=== PATIENT | female | born 2000 | race Caucasian/White ===

== ENCOUNTER 2020-02-09 21:17 | Emergency (ER) | payer OTHER ==
[2020-02-09] MEDS ORDERED: DEXAMETHASONE SOD PHOSPHATE INJ 4 MG/1 ML VIAL IV ONE (21:50)
[2020-02-09 22:41] LABS: ABSOLUTE LYMPHOCYTES (AUTO) 2.4 10^3/uL (0.5-4.7); ABSOLUTE NEUT (AUTO) 9.6 10^3/uL (1.7-8.2); BASOPHILS % (AUTO) 0.3 % (0-2); EOSINOPHILS % (AUTO) 0.2 % (0-6); HEMATOCRIT 43.6 % (36.0-47.0); HEMOGLOBIN 14.7 g/dL (12.0-15.5); LYMPHOCYTES % (AUTO) 18.1 % (13-45); MEAN CORPUSCULAR HGB CONC 33.8 g/dL (32.0-36.0); MEAN CORPUSCULAR VOLUME 89 fl (80-97); MONOCYTES % (AUTO) 7.9 % (3-13); PLATELET COUNT 379 10^3/uL (150-450); RED CELL DISTRIBUTION WIDTH 12.2 % (11.5-14.0); SEGMENTED NEUTROPHILS % (AUTO) 73.5 % (42-78); TOTAL CELLS COUNTED % (AUTO) 100 %; WHITE BLOOD COUNT 13.1 10^3/uL (4.0-10.5)
[2020-02-09 22:57] LABS: ALKALINE PHOSPHATASE 59 U/L (38-126); ANION GAP 11 (5-19); ASPARTATE AMINO TRANSFERASE 23 U/L (14-36); BILIRUBIN,DIRECT 0.3 mg/dL (0.0-0.4); BILIRUBIN,TOTAL 0.5 mg/dL (0.2-1.3); BLOOD UREA NITROGEN 10 mg/dL (7-20); CALCIUM 9.9 mg/dL (8.4-10.2); CARBON DIOXIDE 28 mmol/L (22-30); CHLORIDE 101 mmol/L (98-107); GLUCOSE 120 mg/dL (75-110); POTASSIUM 4.5 mmol/L (3.6-5.0); TOTAL PROTEIN 8.2 g/dL (6.3-8.2)
--- NOTE | 2020-02-09 23:06 | RADIOLOGY REPORT (SQ) ---
EXAM DESCRIPTION: Contrast-enhanced CT scan of the soft tissues of the neck. CLINICAL HISTORY: 19 years Female Sore throat difficulty swallowing difficulty speak TECHNIQUE: Soft tissue protocol CT of the neck using intravenous contrast.. All CT scans at this facility use dose modulation, iterative reconstruction, and/or weight based dosing when appropriate to reduce radiation dose to as low as reasonably achievable. COMPARISON: None. FINDINGS: Sinuses: Visualized paranasal sinuses and mastoid air cells are clear. Soft tissues: Soft tissues of the face are symmetric. Salivary glands: Edema and enlargement of the right submandibular salivary gland is identified and there is surrounding fluid and edema. This appears to be tracking from the right tonsillar pillar and adenoidal tissue into the region of the right submandibular gland. No definitive stone. Pharynx: The epiglottis is normal. The adenoidal tissue is diffusely enlarged and there is edema present. This extends along the right side of the pharynx into the region of the tonsillar pillars where there is an irregular shaped fluid collection which measures approximately 1.5 x 1.7 x 0.8 cm consistent with a tonsillar abscess. There is surrounding low density fluid extending superiorly towards the skull base as well as inferiorly along the right pharyngeal mucosal space to the mid neck. There is marked narrowing and mass effect on the airway at the level of the palate. No prevertebral soft tissue abnormality. Nodes: Lymphadenopathy is identified predominantly at level two with nodes most pronounced on the right side. These measure up to 2.3 cm in size. The extent into level three anterior to the carotid. There may be subtle low density developing within several of the right-sided nodes suggesting necrosis. Bones: No acute bone findings. Vascular: Within normal limits. Thyroid: Within normal limits. Lung apices are clear. Visualized portion of the intracranial contents are unremarkable. Impression: 1. Extensive inflammatory process involving the adenoids as well as the tonsillar tissues with a irregular shaped right-sided tonsillar pillar abscess which measures 1.5 x 1.7 x 0.8 cm and has extensive surrounding phlegmon. There is airway narrowing at the level of the palate. No evidence of epiglottitis. 2. Cervical lymphadenopathy with subtle changes of early lymph node necrosis in the right neck. 3. No extension into the prevertebral space or mediastinum.
[2020-02-09] MEDS ORDERED: AMPICILLIN SOD/SULBACTAM 3 GM VIAL IV ONE (23:16)
[2020-02-09] MEDS ORDERED: CLINDAMYCIN 900 MG/D5W RTU 900 MG/50 ML RTUPB IV ONE (23:18)
--- NOTE | 2020-02-09 23:22 | ER Document Report ---
ED Medical Screen (RME) - General Chief Complaint: Sore Throat Stated Complaint: THROAT SWELLING//COVID TEST NEGATIVE Time Seen by Provider: 02/09/20 21:40 Mode of Arrival: Ambulatory Information source: Patient Notes: 19-year-old female presented to ED for sore throat and fevers since Thursday. She states Thursday her temperature was up to 101 but has not had a fever today. She states she went to the urgent care they did a swab on her and told her she had to wait 7 days for the results. She states that the sore throat got much worse and she has been very sick and so she came to the emergency room to find out what was going on. Strep test mono test blood work and CT soft tissue neck with IV contrast has been completed. I have given report to Dr. Perez. I have greeted and performed a rapid initial assessment of this patient. A comprehensive ED assessment and evaluation of the patient, analysis of test results and completion of medical decision making process will be conducted by an additional ED providers. - Related Data Home Medications: bcp, flonase, sudafed Physical Exam - Vital signs Vitals: Temp Pulse Resp BP Pulse Ox 97.7 F 119 H 16 147/83 H 97 02/09/20 21:23 02/09/20 21:23 02/09/20 21:23 02/09/20 21:23 02/09/20 21:23 Course - Vital Signs Vital signs: Temp Pulse Resp BP Pulse Ox 97.7 F 119 H 16 147/83 H 97 02/09/20 21:23 02/09/20 21:23 02/09/20 21:23 02/09/20 21:23 02/09/20 21:23 - Laboratory Result Diagrams: 02/09/20 22:10 02/09/20 22:10 Laboratory results interpreted by me: 02/09/20 02/09/20 22:10 22:10 WBC 13.1 H Absolute Neuts (auto) 9.6 H Glucose 120 H
--- NOTE | 2020-02-09 23:33 | ER Document Report ---
Entered by YIFAN CARR SCRIBE 02/09/20 [id number] Acting as scribe for:ISA TO DO ED ENT - General Chief Complaint: Sore Throat Stated Complaint: THROAT SWELLING//COVID TEST NEGATIVE Time Seen by Provider: 02/09/20 21:40 Mode of Arrival: Ambulatory Information source: Patient Notes: This 19 year old female patient with no significant past medical history pres ents to the ED today with complaints of sore throat and fever that started x3 days ago. Patient states that the pain progressively worsened today, so she went to a local urgent care and was tested for COVID with negative results and swabbed for strep with culture results pending. She denies cough or any sick contacts. LMP was x3 days ago. - Related Data Allergies/Adverse Reactions: No Known Allergies Allergy (Unverified 02/09/20 23:37) Home Medications: bcp, flonase, sudafed Past Medical History - General Information source: Patient - Social History Smoking Status: Never Smoker Smoking Education Provided: No Lives with: Spouse/Significant other Family History: Reviewed & Not Pertinent Review of Systems - Review of Systems Constitutional: See HPI, Fever EENT: See HPI, Throat pain Cardiovascular: No symptoms reported Respiratory: See HPI. denies: Cough Gastrointestinal: No symptoms reported Genitourinary: No symptoms reported Female Genitourinary: See HPI, Last menstrual period - 02/06/2020 Musculoskeletal: No symptoms reported Skin: No symptoms reported Hematologic/Lymphatic: No symptoms reported Neurological/Psychological: No symptoms reported -: Yes All other systems reviewed and negative Physical Exam - Vital signs Vitals: Temp Pulse Resp BP Pulse Ox 97.7 F 119 H 16 147/83 H 97 02/09/20 21:23 02/09/20 21:23 02/09/20 21:23 02/09/20 21:23 02/09/20 21:23 - General General appearance: Alert, Other - Hot potato voice In distress: None - HEENT Head: Normocephalic, Atraumatic Eyes: Normal Extraocular movements intact: Yes Pupils: PERRL Mouth/Lips: Other - Trismus Pharynx: Peritonsillar abscess - Right peritonsillar swelling that abuts the uvula Neck: Lymphadenopathy - right > left - Respiratory Respiratory status: No respiratory distress Chest status: Nontender Breath sounds: Normal Chest palpation: Normal - Cardiovascular Rhythm: Regular Heart sounds: Normal auscultation Murmur: No Friction rub: No Gallop: None auscultated - Abdominal Inspection: Normal Distension: No distension Bowel sounds: Normal Tenderness: Nontender - Abdomen soft Organomegaly: No organomegaly - Back Back: Normal, Nontender - Extremities General upper extremity: Normal inspection General lower extremity: Normal inspection. No: Edema - Neurological Neuro grossly intact: Yes Cognition: Normal Orientation: AAOx4 Cromwell Coma Scale Eye Opening: Spontaneous Porsha Coma Scale Verbal: Oriented Cromwell Coma Scale Motor: Obeys Commands Porsha Coma Scale Total: 15 - Psychological Associated symptoms: Normal affect, Normal mood - Skin Skin Temperature: Warm Skin Moisture: Dry Skin Color: Normal Course - Re-evaluation Re-evalutation: 02/10/20 00:11 MDM 19 year old with Right sided GLASS BENDER and I have discussed with Dr. Reilly (ENT at [facility]) and he has graciously agreed to see and evaluate in the ED at [facility]. She handles her own secretions well and speaks in full sentences. IV fluids and antibiotics have been administered. 02/10/20 00:32 I have discussed with the ED at [place] too and they will see her. - Vital Signs Vital signs: Temp Pulse Resp BP Pulse Ox 98.5 F 98 20 110/59 L 100 02/10/20 00:06 02/10/20 00:06 02/10/20 00:06 02/10/20 00:06 02/10/20 00:06 - Laboratory Result Diagrams: 02/09/20 22:10 02/09/20 22:10 Laboratory results interpreted by me: 02/09/20 02/09/20 22:10 22:10 WBC 13.1 H Absolute Neuts (auto) 9.6 H Glucose 120 H - Diagnostic Test Radiology reviewed: Image reviewed, Reports reviewed Discharge - Discharge Clinical Impression: Peritonsillar abscess Condition: Stable Disposition: [facility] I personally performed the services described in the documentation, reviewed and edited the documentation which was dictated to the scribe in my presence, and it accurately records my words and actions.
[2020-02-10] MEDS ORDERED: FENTANYL CITRATE INJ/PF 100 MCG/2 ML AMPUL IV ONE (01:25)
[2020-02-10 01:59] VITALS: BP 124/64
== END 2020-02-10 01:59 | disposition short-term general hospital (02) ==
LOC: ER 21:17
DX: J36 Peritonsillar abscess (principal); R50.9 Fever, unspecified; Z79.3 Long term (current) use of hormonal contraceptives; Z79.899 Other long term (current) drug therapy
CPT/HCPCS: 99285; 96375; 96365; 96368; 36415; 87880; 84703; 85025; 86308; 80053; 70491; J1100; J3010; J3490; J0295

== ENCOUNTER 2020-02-23 17:53 | Emergency (ER) | payer OTHER ==
[2020-02-23 18:18] VITALS: BP 128/76
--- NOTE | 2020-02-23 18:50 | ER Document Report ---
ED Medical Screen (RME) - General Chief Complaint: Sore Throat Stated Complaint: THROAT PAIN, SWELLING Notes: 19-year-old female with past medical history of right-sided peritonsillar abscess presenting today with hoarseness that started 2 days ago and sore throat that developed today. No tripoding, is handling own secretions, is not short of breath. She was seen on February 07 and diagnosed with [employer] and she had the abscess drained by ENT in [place] on the . She states that anything was going well until 2 days ago. She is able to eat and drink. Does have pain with swallowing. Denies any fever, chills. Last menstrual period was February 16. Physical: Tonsils are erythematous, R >L mild deviation of uvula to the left. Neck is tender to palpation. I have greeted and performed a rapid initial assessment of this patient. A comprehesive ED assessment and evaluation of this patient, analysis of test results and completion of the medical decision-making process will be conducted by additional ED providers. - Related Data Allergies/Adverse Reactions: No Known Allergies Allergy (Verified 02/23/20 18:34) Physical Exam - Vital signs Vitals: Temp Pulse Resp BP Pulse Ox 98.6 F 94 16 128/76 H 96 02/23/20 18:17 02/23/20 18:17 02/23/20 18:17 02/23/20 18:17 02/23/20 18:17 Course - Vital Signs Vital signs: Temp Pulse Resp BP Pulse Ox 98.6 F 94 16 128/76 H 96 02/23/20 18:17 02/23/20 18:17 02/23/20 18:17 02/23/20 18:17 02/23/20 18:17
[2020-02-23 19:13] LABS: ABSOLUTE EOSINOPHILS # (AUTO) 0.1 10^3/uL (0.0-0.6); ABSOLUTE MONOCYTES (AUTO) 0.8 10^3/uL (0.1-1.4); ABSOLUTE NEUT (AUTO) 7.7 10^3/uL (1.7-8.2); BASOPHILS % (AUTO) 0.4 % (0-2); EOSINOPHILS % (AUTO) 0.6 % (0-6); HEMATOCRIT 42.9 % (36.0-47.0); HEMOGLOBIN 14.4 g/dL (12.0-15.5); LYMPHOCYTES % (AUTO) 25.7 % (13-45); MEAN CORPUSCULAR HEMOGLOBIN 29.6 pg (27.0-33.4); MEAN CORPUSCULAR HGB CONC 33.5 g/dL (32.0-36.0); MEAN CORPUSCULAR VOLUME 88 fl (80-97); MONOCYTES % (AUTO) 6.6 % (3-13); PLATELET COUNT 410 10^3/uL (150-450); RED BLOOD COUNT 4.86 10^6/uL (3.72-5.28); RED CELL DISTRIBUTION WIDTH 12.5 % (11.5-14.0); SEGMENTED NEUTROPHILS % (AUTO) 66.7 % (42-78); TOTAL CELLS COUNTED % (AUTO) 100 %; WHITE BLOOD COUNT 11.6 10^3/uL (4.0-10.5)
[2020-02-23 19:30] LABS: ALBUMIN 4.7 g/dL (3.5-5.0); ALKALINE PHOSPHATASE 63 U/L (38-126); ANION GAP 8 (5-19); ASPARTATE AMINO TRANSFERASE 25 U/L (14-36); BILIRUBIN,DIRECT 0.3 mg/dL (0.0-0.4); BILIRUBIN,TOTAL 0.6 mg/dL (0.2-1.3); BLOOD UREA NITROGEN 13 mg/dL (7-20); CARBON DIOXIDE 28 mmol/L (22-30); CHLORIDE 104 mmol/L (98-107); GLUCOSE 98 mg/dL (75-110); POTASSIUM 4.7 mmol/L (3.6-5.0); TOTAL PROTEIN 7.8 g/dL (6.3-8.2)
== END 2020-02-24 00:11 | disposition left against medical advice (07) ==
LOC: ER 17:53
DX: J02.9 Acute pharyngitis, unspecified (principal); R49.0 Dysphonia
CPT/HCPCS: 36415; 80053; 84703; 85025; 87070; 87880; 99281

== ENCOUNTER 2020-02-24 05:18 | Emergency (ER) | payer OTHER ==
[2020-02-24] MEDS ORDERED: NORMAL SALINE 1000 ML 1,000 ML IV ONE (09:59)
[2020-02-24] MEDS ORDERED: DEXAMETHASONE SOD PHOS INJ 10 MG/1 ML VIAL IV ONE (09:59)
[2020-02-24] MEDS ORDERED: LIDOCAINE 2% VISCOUS SOLN 15 ML UDCUP PO ONE (09:59)
--- NOTE | 2020-02-24 10:01 | ER Document Report ---
ED ENT - General Chief Complaint: Sore Throat Stated Complaint: SORE THROAT, CONGESTION Time Seen by Provider: 02/24/20 09:47 Primary Care Provider: CLARA,NO [Primary Care Provider] - Follow up as needed Mode of Arrival: Ambulatory Notes: Patient was recently treated for a tonsillar abscess with incision and drainage procedure on 02/09/2020. Patient finished her course of antibiotics. Patient reports having throat pain and voice hoarseness over the past 2 days though her throat is swelling. Patient denies any fever. Patient has been able to tolerate oral liquids. - HPI Patient complains to provider of: Throat problem Onset: Other - 3 days Pain Level: 5 Associated symptoms: Sore throat. denies: Chills, Cough, Fever Similar symptoms previously: Yes Recently seen / treated by doctor: Yes - Related Data Allergies/Adverse Reactions: No Known Allergies Allergy (Verified 02/24/20 05:40) Past Medical History - General Information source: Patient - Social History Smoking Status: Never Smoker Frequency of alcohol use: None Drug Abuse: None Occupation: None Lives with: Family Family History: Reviewed & Not Pertinent - Medical History Medical History: Negative Past Surgical History: Reports: Hx Oral Surgery - I& D to peritonsillar abscess Review of Systems - Review of Systems Constitutional: No symptoms reported. denies: Fever EENT: Throat pain, Throat swelling. denies: Difficulty swallowing Cardiovascular: No symptoms reported Respiratory: No symptoms reported. denies: Cough, Short of breath Gastrointestinal: No symptoms reported. denies: Nausea, Vomiting Genitourinary: No symptoms reported Female Genitourinary: No symptoms reported Musculoskeletal: No symptoms reported Skin: No symptoms reported Hematologic/Lymphatic: No symptoms reported Neurological/Psychological: No symptoms reported Physical Exam - Vital signs Vitals: Temp Pulse Resp BP Pulse Ox 98.3 F 98 16 118/71 97 02/24/20 05:39 02/24/20 05:39 02/24/20 05:39 02/24/20 05:39 02/24/20 05:39 - Notes Notes: PHYSICAL EXAMINATION: GENERAL: Well-appearing and in no acute distress. HEAD: Atraumatic, normocephalic. EYES: sclera anicteric, conjunctiva are normal. ENT: Mild voice hoarseness, patient managing oral secretions, tonsillar exudate noted to the right posterior pharynx, uvula is midline. Nares patent. Moist mucous membranes. NECK: Normal range of motion, supple without lymphadenopathy LUNGS: CTAB and equal. No wheezes rales or rhonchi. HEART: Regular rate and rhythm without murmurs EXTREMITIES: Normal range of motion, no pitting edema. No cyanosis. NEUROLOGICAL: Cranial nerves grossly intact. Normal speech. Normal gait. PSYCH: Normal mood, normal affect. SKIN: Warm, Dry, normal turgor, no rashes or lesions noted Course - Re-evaluation Re-evalutation: 02/24/20 13:14 Patient with voice hoarseness, negative strep test. Patient with improved findings on CT scan as compared to her previous when she had a tonsillar abscess. No potential airway compromise at this time. Throat culture is pending. Patient encouraged to follow-up with her ENT doctor. 02/24/20 13:30 Patient is requesting additional antibiotics at this time. Will give patient a short course to cover until she can follow-up with her ENT doctor. - Vital Signs Vital signs: Temp Pulse Resp BP Pulse Ox 98.0 F 87 14 126/60 H 100 02/24/20 13:34 02/24/20 13:34 02/24/20 13:34 02/24/20 13:34 02/24/20 13:34 - Laboratory Result Diagrams: 02/24/20 10:24 02/24/20 11:43 Laboratory results interpreted by me: Labs- All tests 24 hr 02/24/20 02/24/20 02/24/20 10:24 10:24 10:24 WBC 8.8 RBC 4.71 Hgb 14.3 Hct 41.7 MCV 89 MCH 30.3 MCHC 34.2 RDW 12.1 Plt Count 404 Lymph % (Auto) 25.6 [place] % (Auto) 6.2 Eos % (Auto) 0.4 Baso % (Auto) 1.6 Absolute Neuts (auto) 5.8 Absolute Lymphs (auto) 2.2 Absolute Monos (auto) 0.5 Absolute Eos (auto) 0.0 Absolute Basos (auto) 0.1 Seg Neutrophils % 66.2 Sodium Cancelled Potassium Cancelled Chloride Cancelled Carbon Dioxide Cancelled Anion Gap Cancelled BUN Cancelled Creatinine Cancelled Est GFR ( Amer) Cancelled Est GFR (Non-Af Amer) Cancelled Est GFR (MDRD) Non-Af Cancelled Glucose Cancelled Calcium Cancelled EGFR Cancelled Monotest Cancelled Group A Strep Rapid 02/24/20 02/24/20 10:24 11:43 WBC RBC Hgb Hct MCV MCH MCHC RDW Plt Count Lymph % (Auto) [place] % (Auto) Eos % (Auto) Baso % (Auto) Absolute Neuts (auto) Absolute Lymphs (auto) Absolute Monos (auto) Absolute Eos (auto) Absolute Basos (auto) Seg Neutrophils % Sodium 137.6 Potassium 4.9 Chloride 105 Carbon Dioxide 25 Anion Gap 8 BUN 15 Creatinine 0.85 Est GFR ( Amer) > 60 Est GFR (Non-Af Amer) Est GFR (MDRD) Non-Af > 60 Glucose 96 Calcium 8.9 EGFR Monotest Group A Strep Rapid NEGATIVE - Diagnostic Test Radiology reviewed: Reports reviewed Discharge - Discharge Clinical Impression: Voice hoarseness, Sore throat, History of recent tonsillar abscess Condition: Stable Disposition: HOME, SELF-CARE Instructions: Intravenous (IV) Fluids ([facility]), Sore Throat ([facility]), Steroid Med ication Injection Additional Instructions: Return immediately for any new or worsening symptoms Followup with your primary care provider, call tomorrow to make a followup ap pointment Follow-up with the ear nose and throat doctor, Dr. Reilly, for reevaluation given continued throat pain Dr. Jelani Reilly [facility] [address] [place], [place] [id number] [phone] Prescriptions: Clindamycin HCl 300 mg PO TID #15 capsule Naproxen [Naprosyn 250 Nmg Tablet] 1 tab PO BID #14 tablet Hydrocodone/Acetaminophen [[place] 5-325 mg Tablet] 1 tab PO Q6 PRN #6 tablet PRN Reason: Referrals: LOCALMD,NO [Primary Care Provider] - Follow up as needed
[2020-02-24 10:51] LABS: ABSOLUTE BASOPHILS # (AUTO) 0.1 10^3/uL (0.0-0.2); ABSOLUTE LYMPHOCYTES (AUTO) 2.2 10^3/uL (0.5-4.7); ABSOLUTE MONOCYTES (AUTO) 0.5 10^3/uL (0.1-1.4); ABSOLUTE NEUT (AUTO) 5.8 10^3/uL (1.7-8.2); BASOPHILS % (AUTO) 1.6 % (0-2); EOSINOPHILS % (AUTO) 0.4 % (0-6); HEMATOCRIT 41.7 % (36.0-47.0); HEMOGLOBIN 14.3 g/dL (12.0-15.5); LYMPHOCYTES % (AUTO) 25.6 % (13-45); MEAN CORPUSCULAR HEMOGLOBIN 30.3 pg (27.0-33.4); MEAN CORPUSCULAR HGB CONC 34.2 g/dL (32.0-36.0); MEAN CORPUSCULAR VOLUME 89 fl (80-97); MONOCYTES % (AUTO) 6.2 % (3-13); PLATELET COUNT 404 10^3/uL (150-450); RED BLOOD COUNT 4.71 10^6/uL (3.72-5.28); RED CELL DISTRIBUTION WIDTH 12.1 % (11.5-14.0); SEGMENTED NEUTROPHILS % (AUTO) 66.2 % (42-78); TOTAL CELLS COUNTED % (AUTO) 100 %; WHITE BLOOD COUNT 8.8 10^3/uL (4.0-10.5)
--- NOTE | 2020-02-24 11:48 | RADIOLOGY REPORT (SQ) ---
EXAM DESCRIPTION: CT SOFT TISSUE NECK WITH IMAGES COMPLETED DATE/TIME: 02/24/2020 10:59 am REASON FOR STUDY: ST, recent tonsil I D, feel throat swelling COMPARISON: 02/09/2020 TECHNIQUE: Post IV contrasted scanning from skull base through lung apices with review of bone, soft tissue and lung windows. Reconstructed coronal and sagittal MPR images reviewed. All images stored on PACS. All CT scanners at this facility use dose modulation, iterative reconstruction, and/or weight based d osing when appropriate to reduce radiation dose to as low as reasonably achievable (ALARA). [facility]: Dose Right [facility]: CareDose [facility]: Dose Right [facility]: Teradose 4D [facility]: Silversky CONTRAST TYPE AND DOSE: contrast/concentration: Isovue 350.00 mmol/ml; Total Contrast Delivered: 75. 0 ml; Total Saline Delivered: 47.0 ml RENAL FUNCTION: BUN 13; creatinine 0.8 RADIATION DOSE: CT Rad equipment meets quality standard of care and radiation dose reduction techniq ues were employed. CTDIvol: 10.1 mGy. DLP: 317 mGy-cm. . LIMITATIONS: None. FINDINGS: SKULL BASE: Intact. MAJOR SALIVARY GLANDS: No solid or cystic masses. No inflammatory changes. LYMPHADENOPATHY: Re- demonstration of reactive appearing lymphadenopathy involving the bilateral ante rior cervical chains. MUCOSAL MASSES OR ASYMMETRY: Markedly improved appearance of the right tonsillar pillar and adenoid t issues, which now appear only mildly more prominent than the contralateral tissues. A small curvilin ear hypoattenuating focus represents improved appearance of findings on comparison imaging. No discr ete/focal abscess. The airway remains patent. LARYNX/CORDS: No abnormal findings. VASCULAR STRUCTURES: The major vessels are patent. LUNG APICES: Clear. BONES: Intact. THYROID: Normal size. No masses. PARANASAL SINUSES: Clear. OTHER: No other significant finding. IMPRESSION: Markedly improved appearance of the right tonsillar and adenoid tissues which remain mil dly prominent on today's examination. No evidence of focal abscess. The airway remains patent. Per sistent reactive appearing cervical lymphadenopathy. TECHNICAL DOCUMENTATION: JOB ID: [id number] Quality ID # [id number]: Final reports with documentation of one or more dose reduction techniques (e.g., Au tomated exposure control, adjustment of the mA and/or kV according to patient size, use of iterative reconstruction technique) 2010 [employer]- All Rights Reserved Reading location - IP/workstation name: [email or web address]
[2020-02-24 12:24] LABS: ANION GAP 8 (5-19); BLOOD UREA NITROGEN 15 mg/dL (7-20); CALCIUM 8.9 mg/dL (8.4-10.2); CARBON DIOXIDE 25 mmol/L (22-30); CHLORIDE 105 mmol/L (98-107); GLUCOSE 96 mg/dL (75-110)
[2020-02-24 12:46] LABS: POTASSIUM 4.9 mmol/L (3.6-5.0)
[2020-02-24] MEDS ORDERED: FENTANYL CITRATE INJ/PF 100 MCG/2 ML AMPUL IV ONE (13:21)
[2020-02-24 13:35] VITALS: BP 126/60
== END 2020-02-24 13:53 | disposition home or self-care (01) ==
LOC: ER 05:18
DX: J02.9 Acute pharyngitis, unspecified (principal); R49.0 Dysphonia; Z09 Encounter for follow-up examination after completed treatment for conditions other than malignant neoplasm; Z87.09 Personal history of other diseases of the respiratory system; Z98.890 Other specified postprocedural states
CPT/HCPCS: 99285; 96374; 96375; 36415; 87070; 87880; 85025; 86308; 80048; 70491; J3010; J3490; J7030; J1100